=== PATIENT | female | born 1985 | race Caucasian/White ===

== ENCOUNTER 2018-02-16 13:06 | Inpatient (IN) | payer MEDICAID ==
[2018-02-16] MEDS ORDERED: CARBOPROST 250 MCG INJ IM (13:30)
[2018-02-16] MEDS ORDERED: OXYTOCIN 30 UNITS/LR 500 ML IV ×2 (13:30)
[2018-02-16] MEDS ORDERED: MISOPROSTOL 200 MCG TAB PR (13:30)
[2018-02-16] MEDS ORDERED: METHYLERGONOVINE 0.2 MG INJ IM (13:30)
[2018-02-16] MEDS ORDERED: IBUPROFEN 600 MG TAB PO (13:30)
[2018-02-16 14:15] LABS: ADD MAN DIFF? NO
[2018-02-16 14:18] LABS: BASOPHIL # 0.1 10^3/ul (0.0-0.1); BASOPHILS % 0.4 % (0.0-2.0); EOSINOPHILS % 0.4 % (0.0-7.0); HEMATOCRIT 40.4 % (37.0-47.0); HEMOGLOBIN 13.1 g/dl (12.0-16.0); LYMPHOCYTES # 1.4 10^3/ul (0.8-2.9); LYMPHOCYTES % 12.1 % (15.0-51.0); MEAN CORPUSCULAR HEMOGLOBIN 31.3 pg (29.0-33.0); MEAN CORPUSCULAR HGB CONC 32.4 g/dl (32.0-37.0); MEAN CORPUSCULAR VOLUME 96.7 fl (82.0-101.0); MEAN PLATELET VOLUME 11.9 fl (7.4-10.4); MONOCYTE # 0.7 10^3/ul (0.3-0.9); MONOCYTES % 6.6 % (0.0-11.0); NEUTROPHILS % 79.8 % (39.0-77.0); PLATELET COUNT 221 10^3/UL (140-415); RED BLOOD COUNT 4.18 10^6/ul (4.20-5.40); RED CELL DISTRIBUTION WIDTH 14.2 % (11.5-14.5)
[2018-02-16 14:18] LABS: WHITE BLOOD COUNT 11.2 10^3/ul (4.8-10.8)
[2018-02-16 14:40] LABS: ALANINE AMINOTRANSFERASE 51 IU/L (13-69); ALBUMIN 2.4 g/dl (3.3-4.9); ALBUMIN/GLOBULIN RATIO 0.77; ALKALINE PHOSPHATASE 305 IU/L (42-121); ANION GAP 12 (8-16); ASPARTATE AMINO TRANSFERASE 54 IU/L (15-46); BILIRUBIN,INDIRECT 0.2 mg/dl (0-1.1); BILIRUBIN,TOTAL 0.2 mg/dl (0.2-1.3); BLOOD UREA NITROGEN 10 mg/dl (7-20); CALCIUM 8.3 mg/dl (8.4-10.2); CARBON DIOXIDE 21 mmol/L (21-31); CHLORIDE 108 mmol/L (97-110); CREATININE 0.88 mg/dl (0.44-1.00); GLUCOSE 85 mg/dl (70-220); INR 0.89; PROTIME 12.1 Sec (11.9-14.9); PT RATIO 0.9; SODIUM 137 mmol/L (135-144); TOTAL PROTEIN 5.5 g/dl (6.1-8.1); URIC ACID 8.7 mg/dl (3.1-7.9)
[2018-02-16 14:41] LABS: PARTIAL THROMBOPLASTIN TIME 34.9 Sec (25.0-35.0)
[2018-02-16 15:12] LABS: HEPATITIS B SURFACE ANTIGEN NEGATIVE (NEGATIVE)
[2018-02-16 16:39] LABS: ADD UMIC YES; UR ASCORBIC ACID NEGATIVE (NEGATIVE); UR BACTERIA FEW /HPF (NONE SEEN); UR BILIRUBIN (Dip) NEGATIVE (NEGATIVE); UR BLOOD (Dip) NEGATIVE (NEGATIVE); UR CLARITY CLEAR (CLEAR); UR COLOR YELLOW (YELLOW); UR GLUCOSE (Dip) NEGATIVE (NEGATIVE); UR KETONES (Dip) NEGATIVE (NEGATIVE); UR LEUKOCYTE ESTERASE (Dip) NEGATIVE Leu/ul (NEGATIVE); UR MUCUS FEW /HPF (NONE SEEN); UR NITRITE (Dip) NEGATIVE (NEGATIVE); UR RBC 1 /HPF (0-5); UR SPECIFIC GRAVITY (Dip) 1.019 (1.003-1.030); UR TOTAL PROTEIN (Dip) 3+ mg/dl (NEGATIVE); UR UROBILINOGEN (Dip) NEGATIVE (NEGATIVE); UR WBC 1 /HPF (0-5)
[2018-02-16] MEDS: MAGNESIUM SULFATE 4 GM/100 ML 100 ML IV (17:19)
[2018-02-16] MEDS: OXYTOCIN 30 UNITS/LR 500 ML IV (17:21)
[2018-02-16] MEDS: LACTATED RINGER'S 1,000 ML IV (17:25)
[2018-02-16 17:26] LABS: AMPHETAMINE/METHAMPHETAMINE Positive (NEGATIVE); BARBITURATES Negative (NEGATIVE); BENZODIAZEPINES Negative (NEGATIVE); CANNABINOIDS Negative (NEGATIVE); COCAINE Negative (NEGATIVE); OPIATES Positive (NEGATIVE)
[2018-02-16] MEDS: MAGNESIUM SULFATE 20 GM/500 ML 500 ML IV (17:54)
[2018-02-16] MEDS: LABETALOL 200 MG TAB PO (20:40)
[2018-02-16] MEDS: NITROFURANTOIN (SR) 100 MG CAP PO (20:40)
[2018-02-16 23:02] LABS: RAPID PLASMA REAGIN NONREACTIVE (NR)
[2018-02-17] MEDS: FUROSEMIDE 20 MG INJ IV ×2 (00:44→04:10)
[2018-02-17] MEDS: OXYCODONE/ACETAMINOPHEN (5/325) TAB PO ×2 (00:55→09:07)
[2018-02-17 01:37] LABS: MAGNESIUM 5.1 mg/dl (1.7-2.5)
[2018-02-17] MEDS ORDERED: VANCOMYCIN IV PER PHARMACY XX (07:00)
[2018-02-17] MEDS: ALBUTEROL/IPRATROPIUM (NEB) 3 ML AMP HHN ×3 (07:23→23:43)
[2018-02-17 07:31] LABS: AADO2 Arterial 591.4 mmHg (7.0-24.0); Allen Test ACCEPTAB; Arterial Base Excess -6.3 mmol/L (-3.0-3); Arterial Blood Gas Oxygen Sat 94.8 mmHG (95.0-98.0); Arterial COHb 0.5 % (0.0-3.0); Arterial HCO3 19.3 mmol/L (22.0-26.0); Arterial MetHb 0.3 % (0.0-1.5); Arterial Total Hemglobin 15.2 g/dl (12.0-18.0); MODE MASK - NRB; Site Right Radial
[2018-02-17] MEDS: PIPER-TAZO 3.375 GM IV (PMX) 100 ML IVPB ×3 (08:15→20:05)
[2018-02-17 08:21] LABS: ADD MAN DIFF? NO
[2018-02-17 08:31] LABS: WHITE BLOOD COUNT 13.7 10^3/ul (4.8-10.8)
[2018-02-17 08:31] LABS: BASOPHIL # 0.1 10^3/ul (0.0-0.1); BASOPHILS % 0.6 % (0.0-2.0); EOSINOPHILS # 0.4 10^3/ul (0.0-0.5); EOSINOPHILS % 2.9 % (0.0-7.0); HEMATOCRIT 39.5 % (37.0-47.0); HEMOGLOBIN 12.8 g/dl (12.0-16.0); LYMPHOCYTES # 2.1 10^3/ul (0.8-2.9); LYMPHOCYTES % 14.9 % (15.0-51.0); MEAN CORPUSCULAR HEMOGLOBIN 32.2 pg (29.0-33.0); MEAN CORPUSCULAR HGB CONC 32.4 g/dl (32.0-37.0); MEAN CORPUSCULAR VOLUME 99.2 fl (82.0-101.0); MEAN PLATELET VOLUME 11.8 fl (7.4-10.4); MONOCYTE # 0.9 10^3/ul (0.3-0.9); MONOCYTES % 6.2 % (0.0-11.0); NEUTROPHIL # 10.3 10^3/ul (1.6-7.5); NEUTROPHILS % 74.9 % (39.0-77.0); PLATELET COUNT 239 10^3/UL (140-415); RED BLOOD COUNT 3.98 10^6/ul (4.20-5.40); RED CELL DISTRIBUTION WIDTH 14.4 % (11.5-14.5)
[2018-02-17] MEDS: morphine 2 MG INJ IV (08:34)
[2018-02-17 08:44] LABS: MAGNESIUM 3.2 mg/dl (1.7-2.5)
[2018-02-17 08:45] LABS: LACTIC ACID 1.1 mmol/L (0.5-2.0)
[2018-02-17] MEDS: FUROSEMIDE 40 MG INJ IV ×2 (08:55→10:30)
[2018-02-17] MEDS: LABETALOL 200 MG TAB PO (08:55)
[2018-02-17 08:58] LABS: B-TYPE NATRIURETIC PEPTIDE 1280 PG/ML (0-125)
[2018-02-17] MEDS: VANCOMYCIN 1.75 GM in SOD CHLORIDE 0.9% 500 ML IVPB (11:24)
[2018-02-17] MEDS: NITROFURANTOIN (SR) 100 MG CAP PO (11:24)
[2018-02-17] MEDS: IBUPROFEN 600 MG TAB PO ×3 (11:24→18:00)
[2018-02-17 13:46] LABS: HIV 1&2 ANTIBODY NEGATIVE (NEGATIVE)
[2018-02-17 14:34] LABS: MAGNESIUM 2.6 mg/dl (1.7-2.5)
[2018-02-17] MEDS: IOHEXOL 100 ML (14:59)
[2018-02-17] MEDS: SOD CHLORIDE 0.9% 100 ML (14:59)
[2018-02-17] MEDS: IOHEXOL 350MG/ML 50 ML BTL (15:00)
[2018-02-17] MEDS ORDERED: CEPASTAT LOZENGE MT (16:30)
[2018-02-17] MEDS ORDERED: ATROPINE 1 MG/10 ML SYRINGE (16:55)
[2018-02-17 18:23] LABS: MAGNESIUM 2.6 mg/dl (1.7-2.5)
[2018-02-17 18:48] LABS: TROPONIN-I 0.025 ng/ml (0.00-0.12)
[2018-02-17] MEDS ORDERED: VANCOMYCIN 1 GM 250 ML IVPB (20:00)
[2018-02-18 01:31] LABS: MAGNESIUM 2.6 mg/dl (1.7-2.5)
[2018-02-18] MEDS: GUAIFENESIN/DM 5ML CUP PO ×4 (04:35→21:13)
[2018-02-18 05:21] LABS: ADD MAN DIFF? NO
[2018-02-18 05:23] LABS: BASOPHILS % 0.3 % (0.0-2.0); EOSINOPHILS # 0.3 10^3/ul (0.0-0.5); EOSINOPHILS % 2.3 % (0.0-7.0); HEMATOCRIT 34.5 % (37.0-47.0); LYMPHOCYTES # 1.5 10^3/ul (0.8-2.9); LYMPHOCYTES % 13.3 % (15.0-51.0); MEAN CORPUSCULAR HEMOGLOBIN 31.7 pg (29.0-33.0); MEAN CORPUSCULAR HGB CONC 31.9 g/dl (32.0-37.0); MEAN CORPUSCULAR VOLUME 99.4 fl (82.0-101.0); MEAN PLATELET VOLUME 11.9 fl (7.4-10.4); MONOCYTE # 0.6 10^3/ul (0.3-0.9); MONOCYTES % 5.3 % (0.0-11.0); NEUTROPHILS % 78.4 % (39.0-77.0); PLATELET COUNT 228 10^3/UL (140-415); RED BLOOD COUNT 3.47 10^6/ul (4.20-5.40); RED CELL DISTRIBUTION WIDTH 14.5 % (11.5-14.5)
[2018-02-18 05:23] LABS: WHITE BLOOD COUNT 11.5 10^3/ul (4.8-10.8)
[2018-02-18] MEDS: PIPER-TAZO 3.375 GM IV (PMX) 100 ML IVPB ×3 (05:29→12:04)
[2018-02-18] MEDS: IBUPROFEN 600 MG TAB PO ×4 (05:29→17:24)
[2018-02-18 05:50] LABS: ANION GAP 7 (8-16); BLOOD UREA NITROGEN 14 mg/dl (7-20); CALCIUM 7.8 mg/dl (8.4-10.2); CARBON DIOXIDE 28 mmol/L (21-31); CHLORIDE 107 mmol/L (97-110); CREATININE 1.06 mg/dl (0.44-1.00); GLUCOSE 110 mg/dl (70-220); SODIUM 138 mmol/L (135-144)
[2018-02-18 05:54] LABS: MAGNESIUM 2.4 mg/dl (1.7-2.5)
[2018-02-18] MEDS: ALBUTEROL/IPRATROPIUM (NEB) 3 ML AMP HHN (07:03)
[2018-02-18 07:45] LABS: AADO2 Arterial 172.7 mmHg (7.0-24.0); Allen Test ACCEPTAB; Arterial Base Excess 3.4 mmol/L (-3.0-3); Arterial Blood Gas Oxygen Sat 95.7 mmHG (95.0-98.0); Arterial COHb 0.7 % (0.0-3.0); Arterial Fraction of Oxyhgb 94.6 % (93.0-99.0); Arterial HCO3 30.6 mmol/L (22.0-26.0); Arterial MetHb 0.5 % (0.0-1.5); Arterial Total Hemglobin 13.5 g/dl (12.0-18.0); MODE VENT - AC; Site Right Radial
[2018-02-18] MEDS: FUROSEMIDE 40 MG INJ IV ×2 (09:32→16:36)
[2018-02-18 11:16] LABS: RUBELLA ANTIBODY - IGG <0.90 index
[2018-02-18] MEDS: AMOXICILLIN/CLAV 500 MG TAB PO ×2 (16:36→21:13)
[2018-02-18] MEDS: HYDROCODONE/APAP (5/325) TAB PO (16:36)
[2018-02-19] MEDS: IBUPROFEN 600 MG TAB PO ×2 (00:44→05:24)
[2018-02-19] MEDS: AMOXICILLIN/CLAV 500 MG TAB PO ×3 (05:24→21:52)
[2018-02-19] MEDS: GUAIFENESIN/DM 5ML CUP PO ×2 (05:46→10:34)
[2018-02-19] MEDS: ALBUTEROL/IPRATROPIUM (NEB) 3 ML AMP HHN ×4 (05:59→19:46)
[2018-02-19 07:02] LABS: ADD MAN DIFF? NO
[2018-02-19 07:12] LABS: BASOPHIL # 0.1 10^3/ul (0.0-0.1); BASOPHILS % 0.6 % (0.0-2.0); EOSINOPHILS # 0.5 10^3/ul (0.0-0.5); EOSINOPHILS % 5.1 % (0.0-7.0); HEMATOCRIT 36.2 % (37.0-47.0); HEMOGLOBIN 11.6 g/dl (12.0-16.0); LYMPHOCYTES # 2.4 10^3/ul (0.8-2.9); LYMPHOCYTES % 23.9 % (15.0-51.0); MEAN CORPUSCULAR HEMOGLOBIN 31.6 pg (29.0-33.0); MEAN CORPUSCULAR VOLUME 98.6 fl (82.0-101.0); MEAN PLATELET VOLUME 11.4 fl (7.4-10.4); MONOCYTE # 0.7 10^3/ul (0.3-0.9); MONOCYTES % 7.1 % (0.0-11.0); NEUTROPHIL # 6.2 10^3/ul (1.6-7.5); NEUTROPHILS % 62.6 % (39.0-77.0); PLATELET COUNT 242 10^3/UL (140-415); RED BLOOD COUNT 3.67 10^6/ul (4.20-5.40); RED CELL DISTRIBUTION WIDTH 14.1 % (11.5-14.5)
[2018-02-19 07:12] LABS: WHITE BLOOD COUNT 9.9 10^3/ul (4.8-10.8)
[2018-02-19 07:30] LABS: ANION GAP 8 (8-16); BLOOD UREA NITROGEN 17 mg/dl (7-20); CALCIUM 8.5 mg/dl (8.4-10.2); CARBON DIOXIDE 29 mmol/L (21-31); CHLORIDE 106 mmol/L (97-110); GLUCOSE 92 mg/dl (70-220); POTASSIUM 4.1 mmol/L (3.5-5.1); SODIUM 139 mmol/L (135-144)
[2018-02-19] MEDS: FUROSEMIDE 40 MG INJ IV ×2 (08:29→13:15)
[2018-02-19] MEDS: LISINOPRIL 10 MG TAB PO (10:35)
[2018-02-19 12:07] LABS: CHOL/HDL RATIO 5.3 RATIO; HDL CHOLESTEROL 32 mg/dl (34-82); LDL CHOLESTEROL,CALCULATED 84 mg/dl; TRIGLYCERIDES 277 mg/dl (0-149)
[2018-02-19 12:07] LABS: CHOLESTEROL 171 mg/dl (100-200)
[2018-02-19 12:15] LABS: HEMOGLOBIN A1C 4.6 % (0-5.9)
[2018-02-19 12:38] LABS: THYROID STIMULATING HORMONE 0.999 MIU/L (0.465-4.680)
[2018-02-19] MEDS: METHYLPREDNISOLONE 40 MG INJ IV ×2 (13:15→21:52)
[2018-02-19] MEDS: VALSARTAN 80 MG TAB PO ×2 (13:15→21:08)
[2018-02-19] MEDS ORDERED: METHYLPREDNISOLONE 125 MG INJ IV (14:00)
[2018-02-19] MEDS: HYDROCODONE/APAP (5/325) TAB PO ×2 (14:43→23:52)
[2018-02-19] MEDS: CITALOPRAM 20 MG TAB PO (14:43)
[2018-02-19] MEDS: CLONIDINE 0.1 MG/24 HR PATCH TRANSDERM (14:44)
[2018-02-19] MEDS: hydrALAzine 20 MG INJ IV ×2 (16:38→23:53)
[2018-02-19] MEDS: FUROSEMIDE 20 MG INJ IV (17:51)
[2018-02-20] MEDS: ALBUTEROL/IPRATROPIUM (NEB) 3 ML AMP HHN ×6 (00:32→21:00)
[2018-02-20] MEDS: AMOXICILLIN/CLAV 500 MG TAB PO ×3 (05:33→21:50)
[2018-02-20] MEDS: METHYLPREDNISOLONE 40 MG INJ IV ×3 (05:33→21:50)
[2018-02-20] MEDS: VALSARTAN 80 MG TAB PO ×2 (08:50→20:54)
[2018-02-20] MEDS: CITALOPRAM 20 MG TAB PO (08:51)
[2018-02-20 09:26] LABS: ADD MAN DIFF? NO
[2018-02-20 09:30] LABS: WHITE BLOOD COUNT 14.8 10^3/ul (4.8-10.8)
[2018-02-20 09:30] LABS: BASOPHILS % 0.1 % (0.0-2.0); HEMATOCRIT 38.8 % (37.0-47.0); HEMOGLOBIN 12.7 g/dl (12.0-16.0); LYMPHOCYTES # 1.2 10^3/ul (0.8-2.9); LYMPHOCYTES % 7.8 % (15.0-51.0); MEAN CORPUSCULAR HEMOGLOBIN 31.7 pg (29.0-33.0); MEAN CORPUSCULAR HGB CONC 32.7 g/dl (32.0-37.0); MEAN CORPUSCULAR VOLUME 96.8 fl (82.0-101.0); MEAN PLATELET VOLUME 10.6 fl (7.4-10.4); MONOCYTE # 0.2 10^3/ul (0.3-0.9); MONOCYTES % 1.3 % (0.0-11.0); NEUTROPHIL # 13.3 10^3/ul (1.6-7.5); NEUTROPHILS % 89.9 % (39.0-77.0); PLATELET COUNT 301 10^3/UL (140-415); RED BLOOD COUNT 4.01 10^6/ul (4.20-5.40)
[2018-02-20] MEDS: LIDOCAINE 1% (MDV) 10 ML INJ (09:42)
[2018-02-20 09:47] LABS: ANION GAP 13 (8-16); BLOOD UREA NITROGEN 15 mg/dl (7-20); CALCIUM 9.2 mg/dl (8.4-10.2); CARBON DIOXIDE 29 mmol/L (21-31); CHLORIDE 101 mmol/L (97-110); CREATININE 0.67 mg/dl (0.44-1.00); GLUCOSE 135 mg/dl (70-220); POTASSIUM 4.2 mmol/L (3.5-5.1); SODIUM 139 mmol/L (135-144)
[2018-02-20 09:47] LABS: MAGNESIUM 1.6 mg/dl (1.7-2.5)
[2018-02-20] MEDS: FUROSEMIDE 40 MG INJ IV (10:24)
[2018-02-20 10:26] LABS: RUBELLA ANTIBODY - IGM <20.00 AU/mL
[2018-02-20] MEDS: HYDROCODONE/APAP (5/325) TAB PO (10:29)
[2018-02-20] MEDS: MAGNESIUM SULFATE 2 GM/50 ML 50 ML IVPB (11:45)
[2018-02-20] MEDS: FUROSEMIDE 20 MG INJ IV ×2 (16:03→16:13)
[2018-02-21] MEDS: HYDROCODONE/APAP (5/325) TAB PO ×3 (00:21→18:44)
[2018-02-21] MEDS: ALBUTEROL/IPRATROPIUM (NEB) 3 ML AMP HHN ×6 (01:33→19:57)
[2018-02-21] MEDS: AMOXICILLIN/CLAV 500 MG TAB PO ×3 (06:18→21:47)
[2018-02-21] MEDS: METHYLPREDNISOLONE 40 MG INJ IV (06:18)
[2018-02-21] MEDS: CITALOPRAM 20 MG TAB PO (08:17)
[2018-02-21] MEDS: VALSARTAN 80 MG TAB PO (08:18)
[2018-02-21] MEDS: FUROSEMIDE 20 MG TAB PO (08:18)
[2018-02-21 08:32] LABS: ADD MAN DIFF? NO
[2018-02-21 08:36] LABS: WHITE BLOOD COUNT 18.6 10^3/ul (4.8-10.8)
[2018-02-21 08:36] LABS: BASOPHILS % 0.1 % (0.0-2.0); HEMATOCRIT 37.7 % (37.0-47.0); LYMPHOCYTES # 1.5 10^3/ul (0.8-2.9); LYMPHOCYTES % 7.8 % (15.0-51.0); MEAN CORPUSCULAR HEMOGLOBIN 31.3 pg (29.0-33.0); MEAN CORPUSCULAR HGB CONC 31.8 g/dl (32.0-37.0); MEAN CORPUSCULAR VOLUME 98.2 fl (82.0-101.0); MEAN PLATELET VOLUME 10.5 fl (7.4-10.4); MONOCYTE # 0.5 10^3/ul (0.3-0.9); MONOCYTES % 2.7 % (0.0-11.0); NEUTROPHIL # 16.4 10^3/ul (1.6-7.5); NEUTROPHILS % 88.4 % (39.0-77.0); PLATELET COUNT 328 10^3/UL (140-415); RED BLOOD COUNT 3.84 10^6/ul (4.20-5.40)
[2018-02-21 08:54] LABS: ANION GAP 13 (8-16); BLOOD UREA NITROGEN 18 mg/dl (7-20); CALCIUM 9.1 mg/dl (8.4-10.2); CARBON DIOXIDE 30 mmol/L (21-31); CHLORIDE 99 mmol/L (97-110); GLUCOSE 118 mg/dl (70-220); POTASSIUM 4.9 mmol/L (3.5-5.1); SODIUM 137 mmol/L (135-144)
[2018-02-21 08:59] LABS: MAGNESIUM 1.9 mg/dl (1.7-2.5)
[2018-02-21] MEDS: GUAIFENESIN/DM 5ML CUP PO ×2 (09:29→21:48)
[2018-02-21] MEDS: MEASLES,MUMPS,RUBELLA VACCINE INJ SC* (12:15)
[2018-02-21 13:46] LABS: HEPATITIS C VIRAL ANTIBODY NEGATIVE (NEGATIVE)
[2018-02-21] MEDS: VALSARTAN 160 MG TAB PO (21:47)
[2018-02-22] MEDS: ALBUTEROL/IPRATROPIUM (NEB) 3 ML AMP HHN ×6 (01:05→21:06)
[2018-02-22] MEDS: HYDROCODONE/APAP (5/325) TAB PO ×2 (03:19→16:14)
[2018-02-22] MEDS: AMOXICILLIN/CLAV 500 MG TAB PO ×3 (07:01→20:52)
[2018-02-22] MEDS: GUAIFENESIN/DM 5ML CUP PO (07:04)
[2018-02-22 07:19] LABS: HEMATOCRIT 37.2 % (37.0-47.0); HEMOGLOBIN 11.7 g/dl (12.0-16.0); MEAN CORPUSCULAR HEMOGLOBIN 31.7 pg (29.0-33.0); MEAN CORPUSCULAR HGB CONC 31.5 g/dl (32.0-37.0); MEAN CORPUSCULAR VOLUME 100.8 fl (82.0-101.0); MEAN PLATELET VOLUME 10.2 fl (7.4-10.4); PLATELET COUNT 315 10^3/UL (140-415); RED BLOOD COUNT 3.69 10^6/ul (4.20-5.40); RED CELL DISTRIBUTION WIDTH 13.9 % (11.5-14.5)
[2018-02-22 07:19] LABS: WHITE BLOOD COUNT 13.3 10^3/ul (4.8-10.8)
[2018-02-22 07:21] LABS: ADD MAN DIFF? YES; POSITIVE DIFF @See below
[2018-02-22 07:48] LABS: ANION GAP 9 (8-16); BLOOD UREA NITROGEN 18 mg/dl (7-20); CALCIUM 8.7 mg/dl (8.4-10.2); CARBON DIOXIDE 31 mmol/L (21-31); CHLORIDE 103 mmol/L (97-110); CREATININE 0.76 mg/dl (0.44-1.00); GLUCOSE 80 mg/dl (70-220); POTASSIUM 4.6 mmol/L (3.5-5.1); SODIUM 138 mmol/L (135-144)
[2018-02-22] MEDS: CITALOPRAM 20 MG TAB PO (08:28)
[2018-02-22] MEDS: VALSARTAN 160 MG TAB PO ×2 (08:36→20:51)
[2018-02-22] MEDS: FUROSEMIDE 20 MG TAB PO (08:37)
[2018-02-22 09:43] LABS: ANISOCYTOSIS 1+ (0-0); BAND NEUTROPHILS #M 0.5 10^3/ul (0.0-0.6); BAND NEUTROPHILS % (M) 4 % (0-4); BASOPHIL #M 0.2 10^3/ul (0.0-0.0); BASOPHILS % (M) 2 % (0-2); EOSINOPHILS % (M) 3 % (0-7); LYMPHOCYTES #M 3.9 10^3/ul (0.8-2.9); LYMPHOCYTES % (M) 30 % (15-51); METAMYELOCYTES #M 0.2 10^3/ul (0.0-0.0); METAMYELOCYTES %M 2 % (0-0); MONOCYTE #M 0.7 10^3/ul (0.3-0.9); MONOCYTES % (M) 6 % (0-11); PLATELET ESTIMATE NORMAL; POLYCHROMASIA 3+ (0-0); SEG NEUT #M 7.1 10^3/ul (1.6-7.5); SEGMENTED NEUTROPHILS (M) % 53 % (39-77); SMUDGE%M 8 % (0-0)
[2018-02-22] MEDS: FLUOXETINE 20 MG CAP PO (12:13)
[2018-02-23] MEDS: ALBUTEROL/IPRATROPIUM (NEB) 3 ML AMP HHN ×4 (00:57→13:00)
[2018-02-23] MEDS: AMOXICILLIN/CLAV 500 MG TAB PO (05:11)
[2018-02-23] MEDS: FLUOXETINE 20 MG CAP PO (09:39)
[2018-02-23] MEDS: VALSARTAN 160 MG TAB PO (09:39)
[2018-02-23] MEDS: FUROSEMIDE 20 MG TAB PO (09:40)
[2018-02-24] MEDS ORDERED: FUROSEMIDE 20 MG TAB PO (09:00)
== END 2018-02-23 14:10 | disposition home or self-care (01) | DRG 776 ==
LOC: L-D 13:06 → MS4 02-17 05:32 → TEL 02-18 13:56 → MS1 02-22 15:24 → ICU 02-17 07:01 → PP1 18:17
PROC: 0W993ZX Drainage of Right Pleural Cavity, Percutaneous Approach, Diagnostic (ICD-10-PCS; principal; 2018-02-20)
DX: O99.53 Diseases of the respiratory system complicating the puerperium (principal); I50.33 Acute on chronic diastolic (congestive) heart failure; J18.9 Pneumonia, unspecified organism; J96.91 Respiratory failure, unspecified with hypoxia; F33.1 Major depressive disorder, recurrent, moderate; O88.83 Other embolism in the puerperium; O99.315 Alcohol use complicating the puerperium; O89.1 Cardiac complications of anesthesia during the puerperium; O99.89 Other specified diseases and conditions complicating pregnancy, childbirth and the puerperium; Z3A.32 32 weeks gestation of pregnancy; I11.0 Hypertensive heart disease with heart failure; F15.10 Other stimulant abuse, uncomplicated; F53 Mental and behavioral disorders associated with the puerperium, not elsewhere classified; G47.30 Sleep apnea, unspecified; O99.215 Obesity complicating the puerperium; E66.9 Obesity, unspecified; Z68.38 Body mass index [BMI] 38.0-38.9, adult; R00.1 Bradycardia, unspecified; O15.2 Eclampsia complicating the puerperium
CPT/HCPCS: 36600; 59414; 71045; 71275; 76856; 76942; 80048; 80053; 80061; 80307; 81001; 82803; 82962; 83036; 83605; 83735; 83880; 84443; 84484; 84560; 85025; 85384; 85610; 85730; 86480; 86592; 86703; 86762; 86803; 86850; 86900; 86901; 87340; 88307; 93005; 93306; 94640; 94660; 94664

== ENCOUNTER 2018-03-05 08:11 | Inpatient (IN) | payer MEDICAID ==
[2018-03-05] MEDS: hydrALAzine 20 MG INJ IV (09:18)
[2018-03-05] MEDS: NICARDipine HCL 30 MG CAPSULE PO (09:19)
[2018-03-05 09:46] LABS: ADD MAN DIFF? NO
[2018-03-05 09:52] LABS: BASOPHIL # 0.1 10^3/ul (0.0-0.1); BASOPHILS % 0.7 % (0.0-2.0); EOSINOPHILS # 0.2 10^3/ul (0.0-0.5); EOSINOPHILS % 1.5 % (0.0-7.0); HEMATOCRIT 38.7 % (37.0-47.0); HEMOGLOBIN 12.6 g/dl (12.0-16.0); LYMPHOCYTES # 2.2 10^3/ul (0.8-2.9); LYMPHOCYTES % 22.4 % (15.0-51.0); MEAN CORPUSCULAR HEMOGLOBIN 31.4 pg (29.0-33.0); MEAN CORPUSCULAR HGB CONC 32.6 g/dl (32.0-37.0); MEAN CORPUSCULAR VOLUME 96.5 fl (82.0-101.0); MEAN PLATELET VOLUME 9.7 fl (7.4-10.4); MONOCYTE # 0.7 10^3/ul (0.3-0.9); MONOCYTES % 6.8 % (0.0-11.0); NEUTROPHIL # 6.8 10^3/ul (1.6-7.5); NEUTROPHILS % 67.9 % (39.0-77.0); PLATELET COUNT 302 10^3/UL (140-415); RED BLOOD COUNT 4.01 10^6/ul (4.20-5.40); RED CELL DISTRIBUTION WIDTH 14.3 % (11.5-14.5)
[2018-03-05 10:16] LABS: ALANINE AMINOTRANSFERASE 77 IU/L (13-69); ALBUMIN 3.5 g/dl (3.3-4.9); ALBUMIN/GLOBULIN RATIO 1.09; ALKALINE PHOSPHATASE 156 IU/L (42-121); ANION GAP 11 (8-16); ASPARTATE AMINO TRANSFERASE 58 IU/L (15-46); BILIRUBIN,INDIRECT 0.3 mg/dl (0-1.1); BILIRUBIN,TOTAL 0.3 mg/dl (0.2-1.3); BLOOD UREA NITROGEN 13 mg/dl (7-20); CARBON DIOXIDE 24 mmol/L (21-31); CHLORIDE 111 mmol/L (97-110); CREATININE 0.66 mg/dl (0.44-1.00); GLUCOSE 90 mg/dl (70-220); SODIUM 142 mmol/L (135-144); TOTAL PROTEIN 6.7 g/dl (6.1-8.1)
[2018-03-05 10:23] LABS: PROTIME 12.2 Sec (11.9-14.9)
[2018-03-05 10:24] LABS: PARTIAL THROMBOPLASTIN TIME 29.2 Sec (25.0-35.0)
[2018-03-05 10:28] LABS: B-TYPE NATRIURETIC PEPTIDE 2760 PG/ML (0-125); TROPONIN-I 0.036 ng/ml (0.00-0.12)
[2018-03-05] MEDS: CEFEPIME 1GM/50 ML (PMX) 50 ML IVPB (10:36)
[2018-03-05] MEDS: FUROSEMIDE 40 MG INJ IV ×2 (10:36→17:31)
[2018-03-05] MEDS: LORAZEPAM 2 MG INJ IV (10:48)
[2018-03-05 11:21] LABS: LACTIC ACID 0.9 mmol/L (0.5-2.0)
[2018-03-05] MEDS: VANCOMYCIN 1 GM (PMX) 250 ML IVPB (12:17)
[2018-03-05] MEDS ORDERED: ONDANSETRON 4 MG INJ IV ×2 (13:00→13:30)
[2018-03-05] MEDS ORDERED: ACETAMINOPHEN 325 MG TAB PO (13:00)
[2018-03-05] MEDS ORDERED: LORAZEPAM 0.5 MG TAB PO (13:30)
[2018-03-05] MEDS ORDERED: ALBUTEROL/IPRATROPIUM (NEB) 3 ML AMP HHN ×2 (13:30→14:00)
[2018-03-05] MEDS ORDERED: DOCUSATE SODIUM 100 MG CAP PO (13:30)
[2018-03-05] MEDS ORDERED: NACL 0.9% 3 ML SYG IV (13:30)
[2018-03-05] MEDS ORDERED: morphine 2 MG INJ IV (13:30)
[2018-03-05] MEDS ORDERED: MAGNESIUM HYDROXIDE 30ML CUP PO (13:30)
[2018-03-05] MEDS ORDERED: BISACODYL (EC) 5 MG TAB PO (13:30)
[2018-03-05] MEDS ORDERED: LEVALBUTEROL (NEB) 1.25 MG/0.5 ML AMP HHN (14:00)
[2018-03-05] MEDS: SOD CHLORIDE 0.9% 100 ML (14:22)
[2018-03-05] MEDS: IOHEXOL 100 ML (14:22)
[2018-03-05 18:38] LABS: ADD UMIC YES; UR ASCORBIC ACID NEGATIVE (NEGATIVE); UR BILIRUBIN (Dip) NEGATIVE (NEGATIVE); UR BLOOD (Dip) 1+ mg/dL (NEGATIVE); UR CLARITY CLEAR (CLEAR); UR COLOR STRAW (YELLOW); UR GLUCOSE (Dip) NEGATIVE (NEGATIVE); UR KETONES (Dip) NEGATIVE (NEGATIVE); UR LEUKOCYTE ESTERASE (Dip) TRACE Leu/ul (NEGATIVE); UR NITRITE (Dip) NEGATIVE (NEGATIVE); UR RBC 1 /HPF (0-5); UR SPECIFIC GRAVITY (Dip) 1.008 (1.003-1.030); UR TOTAL PROTEIN (Dip) 1+ mg/dl (NEGATIVE); UR UROBILINOGEN (Dip) NEGATIVE (NEGATIVE); UR WBC 5 /HPF (0-5)
[2018-03-05 18:59] LABS: AMPHETAMINE/METHAMPHETAMINE Negative (NEGATIVE)
[2018-03-05 19:00] LABS: BARBITURATES Negative (NEGATIVE); BENZODIAZEPINES Negative (NEGATIVE); CANNABINOIDS Negative (NEGATIVE); COCAINE Negative (NEGATIVE); OPIATES Negative (NEGATIVE)
[2018-03-05] MEDS: VALSARTAN 160 MG TAB PO (20:06)
[2018-03-05] MEDS: HYDROCODONE/APAP (5/325) TAB PO (20:07)
[2018-03-05] MEDS: HEPARIN 5,000 UNIT/0.5 ML VIAL SC (20:14)
[2018-03-05] MEDS: IPRATROPIUM (NEB) 0.5 MG/2.5 ML AMP HHN (20:28)
[2018-03-05] MEDS: LEVALBUTEROL (NEB) 1.25 MG/0.5 ML AMP HHN (20:28)
[2018-03-05] MEDS: LEVOFLOXACIN 750MG/D5W (PMX) 150 ML IVPB (22:11)
[2018-03-06] MEDS: LEVALBUTEROL (NEB) 1.25 MG/0.5 ML AMP HHN ×4 (01:34→20:17)
[2018-03-06] MEDS: FUROSEMIDE 40 MG INJ IV ×2 (05:40→17:52)
[2018-03-06] MEDS: HEPARIN 5,000 UNIT/0.5 ML VIAL SC ×3 (06:35→21:24)
[2018-03-06 07:27] LABS: ADD MAN DIFF? NO
[2018-03-06 07:28] LABS: BASOPHIL # 0.1 10^3/ul (0.0-0.1); BASOPHILS % 0.8 % (0.0-2.0); EOSINOPHILS # 0.1 10^3/ul (0.0-0.5); EOSINOPHILS % 1.9 % (0.0-7.0); HEMATOCRIT 39.8 % (37.0-47.0); HEMOGLOBIN 12.9 g/dl (12.0-16.0); LYMPHOCYTES # 1.8 10^3/ul (0.8-2.9); LYMPHOCYTES % 23.8 % (15.0-51.0); MEAN CORPUSCULAR HEMOGLOBIN 31.2 pg (29.0-33.0); MEAN CORPUSCULAR HGB CONC 32.4 g/dl (32.0-37.0); MEAN CORPUSCULAR VOLUME 96.1 fl (82.0-101.0); MEAN PLATELET VOLUME 9.4 fl (7.4-10.4); MONOCYTE # 0.7 10^3/ul (0.3-0.9); MONOCYTES % 9.2 % (0.0-11.0); NEUTROPHIL # 4.8 10^3/ul (1.6-7.5); NEUTROPHILS % 63.5 % (39.0-77.0); PLATELET COUNT 261 10^3/UL (140-415); RED BLOOD COUNT 4.14 10^6/ul (4.20-5.40); RED CELL DISTRIBUTION WIDTH 14.3 % (11.5-14.5)
[2018-03-06 07:28] LABS: WHITE BLOOD COUNT 7.5 10^3/ul (4.8-10.8)
[2018-03-06 07:59] LABS: ALANINE AMINOTRANSFERASE 60 IU/L (13-69); ALBUMIN 3.7 g/dl (3.3-4.9); ALBUMIN/GLOBULIN RATIO 1.12; ALKALINE PHOSPHATASE 141 IU/L (42-121); ANION GAP 16 (8-16); ASPARTATE AMINO TRANSFERASE 39 IU/L (15-46); BILIRUBIN,INDIRECT 0.5 mg/dl (0-1.1); BILIRUBIN,TOTAL 0.5 mg/dl (0.2-1.3); BLOOD UREA NITROGEN 12 mg/dl (7-20); CALCIUM 8.9 mg/dl (8.4-10.2); CARBON DIOXIDE 26 mmol/L (21-31); CHLORIDE 104 mmol/L (97-110); CREATININE 0.83 mg/dl (0.44-1.00); GLUCOSE 88 mg/dl (70-220); MAGNESIUM 1.7 mg/dl (1.7-2.5); POTASSIUM 3.6 mmol/L (3.5-5.1); SODIUM 142 mmol/L (135-144)
[2018-03-06] MEDS: IPRATROPIUM (NEB) 0.5 MG/2.5 ML AMP HHN ×3 (08:09→20:17)
[2018-03-06] MEDS: VALSARTAN 160 MG TAB PO ×2 (09:10→21:10)
[2018-03-06] MEDS: FLUOXETINE 20 MG CAP PO (09:10)
[2018-03-06] MEDS: HYDROCODONE/APAP (5/325) TAB PO ×2 (09:14→21:48)
[2018-03-06] MEDS: CITALOPRAM 20 MG TAB PO ×2 (15:00→17:51)
[2018-03-06 15:23] LABS: ETHANOL < 10.0 mg/dl
[2018-03-06] MEDS: IOHEXOL 100 ML (15:43)
[2018-03-06] MEDS: SOD CHLORIDE 0.9% 100 ML (15:43)
[2018-03-06] MEDS: LEVOFLOXACIN 750MG/D5W (PMX) 150 ML IVPB (21:10)
[2018-03-07] MEDS: LEVALBUTEROL (NEB) 1.25 MG/0.5 ML AMP HHN ×4 (01:19→19:33)
[2018-03-07] MEDS: FUROSEMIDE 40 MG INJ IV (06:25)
[2018-03-07] MEDS: HEPARIN 5,000 UNIT/0.5 ML VIAL SC ×3 (06:26→22:10)
[2018-03-07 07:42] LABS: ADD MAN DIFF? NO
[2018-03-07 07:49] LABS: BASOPHIL # 0.1 10^3/ul (0.0-0.1); EOSINOPHILS # 0.2 10^3/ul (0.0-0.5); EOSINOPHILS % 2.9 % (0.0-7.0); HEMOGLOBIN 12.5 g/dl (12.0-16.0); MEAN CORPUSCULAR HGB CONC 32.1 g/dl (32.0-37.0); MEAN CORPUSCULAR VOLUME 96.8 fl (82.0-101.0); MEAN PLATELET VOLUME 9.5 fl (7.4-10.4); MONOCYTE # 0.6 10^3/ul (0.3-0.9); MONOCYTES % 10.1 % (0.0-11.0); NEUTROPHIL # 3.4 10^3/ul (1.6-7.5); NEUTROPHILS % 53.4 % (39.0-77.0); PLATELET COUNT 260 10^3/UL (140-415); RED BLOOD COUNT 4.03 10^6/ul (4.20-5.40); RED CELL DISTRIBUTION WIDTH 14.1 % (11.5-14.5)
[2018-03-07 07:49] LABS: WHITE BLOOD COUNT 6.3 10^3/ul (4.8-10.8)
[2018-03-07] MEDS: IPRATROPIUM (NEB) 0.5 MG/2.5 ML AMP HHN ×3 (08:27→19:33)
[2018-03-07 08:33] LABS: ANION GAP 13 (8-16); BLOOD UREA NITROGEN 16 mg/dl (7-20); CALCIUM 8.8 mg/dl (8.4-10.2); CARBON DIOXIDE 28 mmol/L (21-31); CHLORIDE 104 mmol/L (97-110); GLUCOSE 85 mg/dl (70-220); POTASSIUM 3.7 mmol/L (3.5-5.1); SODIUM 141 mmol/L (135-144)
[2018-03-07] MEDS: CITALOPRAM 20 MG TAB PO (09:08)
[2018-03-07] MEDS: VALSARTAN 160 MG TAB PO ×2 (09:08→20:06)
[2018-03-07] MEDS: FLUOXETINE 20 MG CAP PO (09:08)
[2018-03-07] MEDS: ACETAMINOPHEN 325 MG TAB PO (18:09)
[2018-03-07] MEDS: LEVOFLOXACIN 750MG/D5W (PMX) 150 ML IVPB (20:06)
[2018-03-07] MEDS: HYDROCODONE/APAP (5/325) TAB PO (20:06)
[2018-03-08] MEDS: LEVALBUTEROL (NEB) 1.25 MG/0.5 ML AMP HHN ×2 (01:29→08:00)
[2018-03-08] MEDS: FUROSEMIDE 20 MG TAB PO (06:36)
[2018-03-08] MEDS: HEPARIN 5,000 UNIT/0.5 ML VIAL SC (06:37)
[2018-03-08] MEDS: IPRATROPIUM (NEB) 0.5 MG/2.5 ML AMP HHN (08:00)
[2018-03-08] MEDS: CITALOPRAM 20 MG TAB PO (08:54)
[2018-03-08] MEDS: FLUOXETINE 20 MG CAP PO (08:54)
[2018-03-08] MEDS: VALSARTAN 160 MG TAB PO (08:55)
[2018-03-08] MEDS: HYDROCODONE/APAP (5/325) TAB PO (08:59)
[2018-03-08 09:37] LABS: ADD MAN DIFF? NO
[2018-03-08 09:42] LABS: WHITE BLOOD COUNT 5.9 10^3/ul (4.8-10.8)
[2018-03-08 09:42] LABS: BASOPHIL # 0.1 10^3/ul (0.0-0.1); EOSINOPHILS # 0.3 10^3/ul (0.0-0.5); EOSINOPHILS % 4.6 % (0.0-7.0); HEMOGLOBIN 12.4 g/dl (12.0-16.0); LYMPHOCYTES # 1.9 10^3/ul (0.8-2.9); LYMPHOCYTES % 31.9 % (15.0-51.0); MEAN CORPUSCULAR HEMOGLOBIN 31.2 pg (29.0-33.0); MEAN CORPUSCULAR HGB CONC 32.6 g/dl (32.0-37.0); MEAN CORPUSCULAR VOLUME 95.7 fl (82.0-101.0); MEAN PLATELET VOLUME 9.9 fl (7.4-10.4); MONOCYTE # 0.6 10^3/ul (0.3-0.9); MONOCYTES % 10.5 % (0.0-11.0); NEUTROPHILS % 51.5 % (39.0-77.0); PLATELET COUNT 259 10^3/UL (140-415); RED BLOOD COUNT 3.97 10^6/ul (4.20-5.40); RED CELL DISTRIBUTION WIDTH 13.8 % (11.5-14.5)
[2018-03-08 10:15] LABS: ANION GAP 9 (8-16); BLOOD UREA NITROGEN 15 mg/dl (7-20); CALCIUM 9.4 mg/dl (8.4-10.2); CARBON DIOXIDE 30 mmol/L (21-31); CHLORIDE 104 mmol/L (97-110); CREATININE 0.75 mg/dl (0.44-1.00); GLUCOSE 79 mg/dl (70-220); SODIUM 139 mmol/L (135-144)
== END 2018-03-08 14:38 | disposition home or self-care (01) | DRG 291 ==
LOC: E/R 08:11 → MS4 14:19
DX: I11.0 Hypertensive heart disease with heart failure (principal); J18.9 Pneumonia, unspecified organism; I50.9 Heart failure, unspecified; E66.9 Obesity, unspecified; Z68.36 Body mass index [BMI] 36.0-36.9, adult; Z87.891 Personal history of nicotine dependence
CPT/HCPCS: 36415; 71045; 71275; 80048; 80053; 80306; 80307; 81001; 83605; 83735; 83880; 84484; 85025; 85610; 85730; 87040; 87081; 93005; 94640; 96374; 96375; 99285-25